=== PATIENT | male | born 1980 | race Caucasian/White ===

== ENCOUNTER → 2020-01-31 | Outpatient (CLI) | payer BC ==
[~2020-01-31] MED LIST: ALEVE220 M1 PO; CLONAZEPAM 1 MG1 M1 PO; DULOXETINE HCL30 MG PO; MOTION SICKNESS50 M1 PO; NEURONTIN 300M300 M2 PO; OMEGA 3 1,0001 EACH PO; PERCOCET 10-321 EACH PO; PROTONIX40 M2 PO
== END ==
LOC: RAD 12:24
DX: M51.36 Other intervertebral disc degeneration, lumbar region (principal); G89.29 Other chronic pain

== ENCOUNTER → 2020-02-05 | Outpatient (CLI) | payer BC | LOC: LAB 07:44 | DX: Z01.812 Encounter for preprocedural laboratory examination (principal); Z20.828 Contact with and (suspected) exposure to other viral communicable diseases ==

== ENCOUNTER 2020-02-14 10:01 | Inpatient (IN) | payer BC ==
[2020-02-05 11:12] LABS: URINE BILIRUBIN NEGATIVE (Negative); URINE BLOOD NEGATIVE (Negative); URINE CLARITY CLEAR; URINE COLOR YELLOW; URINE GLUCOSE-RANDOM* NEGATIVE (Negative); URINE KETONES NEGATIVE (Negative); URINE LEUKOCYTES-REFLEX NEGATIVE (Negative); URINE NITRITE-REFLEX NEGATIVE (Negative); URINE PROTEIN (DIPSTICK) NEGATIVE (Negative); URINE SPECIFIC GRAVITY <= 1.005 (1.005-1.035); URINE UROBILINOGEN 0.2 E.U./dl (0.2-1.0)
[2020-02-05 11:13] LABS: ABSOLUTE NEUTROPHILS 7.1 thou/uL (1.4-8.2); BASOPHILS 0.5 % (0.0-2.0); EOSINOPHILS 3.5 % (0.0-3.0); HEMATOCRIT 45.2 % (42.0-52.0); HEMOGLOBIN 15.7 gm/dL (14.0-18.0); LYMPHOCYTES 23.8 % (24.0-44.0); MCH 31.1 pg (26.0-34.0); MCHC 34.7 g/dL (28.0-37.0); MCV 89.7 fL (80.0-100.0); MONOCYTES 5.2 % (1.0-8.0); PLATELET COUNT 275 thou/uL (150-400); RBC 5.05 mil/uL (4.50-6.00); RDW 13.4 % (10.5-14.5); WBC 10.6 thou/uL (4.0-11.0)
[2020-02-05 11:26] LABS: PROTIME 10.2 Seconds (9.3-11.4)
[2020-02-05 11:32] LABS: ALBUMIN 4.5 g/dL (3.4-5.0); CALCIUM 9.4 mg/dL (8.5-10.1); CREATININE 1.1 mg/dL (0.7-1.3); POTASSIUM 4.5 mmol/L (3.5-5.1); TOTAL BILIRUBIN 0.3 mg/dL (0.2-1.0); TOTAL PROTEIN 7.7 g/dL (6.4-8.2)
[2020-02-14] VITALS (7 sets, daily range): BP systolic 123–138; BP diastolic 74–82
[~2020-02-14] VITALS: Ht 195.6 cm; Wt 79.4 kg
[~2020-02-14 10:01] MED LIST changes: +DRAMAMINE PO
--- NOTE | 2020-02-14 17:17 | NUR ---
PT ARRIVED ON UNIT AT 1605, PT IS AOX4, VSS. PT RATES BACK PAIN 5/10, SUPERVISOR HEAT TREATING APPROVED 2 ORAL PAIN ANALGESICS BEFORE INSURANCE POLICY CLERK PUMP WAS CONNECTED. DRESSING ON BACK IS CDI, HAS URINAL AT BS. IV IN RIGHT AC IS PATENT WITH FLUIDS FLOWING. NURSE EDUCATED PT ABOUT CALL LIGHT AND INSURANCE POLICY CLERK PUMP. SCDS, HOMER HOSE ARE IN PLACE. WILL CONTINUE TO MONITOR.
--- NOTE | 2020-02-15 03:38 | NUR ---
ASSUMED PT CARE AT 1900.MELTER SUPERVISOR OPEN HEARTH FURNACE PUMP PROVIDING RELIEVE.URINAL AT BEDSIDE WITH ADEQUATE URINAL OUTPUT.DRSG TO HER BACK DRY AND INTACT.PT WAS ABLE TO TOLERATE CLEAR LIQUIDS AT HS.PT ABLE TO MAKE HIS NEEDS KNOWN.
[2020-02-15 04:45] VITALS: BP 132/78
[2020-02-15 05:43] LABS: ABSOLUTE NEUTROPHILS 8.2 thou/uL (1.4-8.2); BASOPHILS 0.3 % (0.0-2.0); HEMATOCRIT 41.4 % (42.0-52.0); LYMPHOCYTES 10.7 % (24.0-44.0); MCH 30.6 pg (26.0-34.0); MCHC 33.8 g/dL (28.0-37.0); MCV 90.5 fL (80.0-100.0); MONOCYTES 6.3 % (1.0-8.0); PLATELET COUNT 226 thou/uL (150-400); POLYS 80.7 % (36.0-66.0); RBC 4.58 mil/uL (4.50-6.00); RDW 13.2 % (10.5-14.5); WBC 10.1 thou/uL (4.0-11.0)
[2020-02-15 06:24] LABS: CALCIUM 9.4 mg/dL (8.5-10.1); CREATININE 1.1 mg/dL (0.7-1.3); MAGNESIUM 1.7 mg/dL (1.8-2.4); POTASSIUM 4.2 mmol/L (3.5-5.1)
[2020-02-15 08:13] VITALS: BP 109/67
[2020-02-15] MEDS ORDERED: ROBAXIN 750 MG750 MG PO (09:43)
--- NOTE | 2020-02-15 10:19 | NUR ---
assumed care at 0700. pt is a&o x 4. pt complains of pain and was given oxycodone. IV right A.C shows no signs of discomfort or pain. fall precaution. call light within reach. Aquasel dressing was changed on back during shift. diet is regular. VSS. Pt is readjusting on bed every [address] hours[address] SCD hose are in place.
[2020-02-15 15:33] VITALS: BP 109/67
[2020-02-15 15:37] VITALS: BP 136/81
--- NOTE | 2020-02-16 10:54 | O ---
[facility] [place] [address] OPERATIVE REPORT Name: RUTH BARROSO Room #: 436-P [facility] IN M.R.#: [id number] Admission: 02/14/20 Attend Phys: Peterson King Discharge: 02/15/20 Date of : 80 Report #: [id number] THIS REPORT FOR: cc: [facility] - Clinic physician unknown [facility] - Clinic physician unknown Shawn Alvarenga MD ~ CC: [facility]J unknown Peterson King DATE OF SERVICE: 02/14/2020 PREPROCEDURAL DIAGNOSES: Right L4-L5 herniated nucleus pulposus, right L5-S1 herniated nucleus pulposus with radiculopathy, L5 and S1 nerve root. POSTPROCEDURAL DIAGNOSES: Right L4-L5 herniated nucleus pulposus, right L5-S1 herniated nucleus pulposus with radiculopathy, L5 and S1 nerve root. PROCEDURES PERFORMED: Right L4-L5 herniated nucleus pulposus excision, right L5-S1 herniated nucleus pulposus excision and fluoroscopy. SURGEON: Dr. Alvarenga. BIOINFORMATICS ENGINEER SURGEON: JOSTIN Willis ANESTHESIA: General via endotracheal tube. INDICATIONS: The patient has had intractable right leg pain, both in L5 and S1 distribution. He has herniations by MRI at both levels, L4-L5 and L5-S1. The patient has proved refractory to multiple modality conservative management, and he is requesting we proceed with operative intervention. He understands the risks of surgery to be , DVT, pulmonary embolism, paraplegia, loss of bowel and bladder function, loss of sexual function, possibility of bleeding, bleeding requiring transfusion, transfusion attendant risks of AIDS and hepatitis infection, instability, need for revision, prolonged hospital stay, dural leak, and spinal headache, and recurrence. DESCRIPTION OF PROCEDURE: He was brought to the operating room, administered general anesthesia via endotracheal tube. Lower extremities were treated with HOMER hose and intermittent compression stockings. He had received Ancef and was positioned with all bony prominences and padded appropriately. Care was taken to ensure the shoulders not abducted more than 90 degrees, the elbows flexed more than 90 degrees and there was no undue pressure on the cubital or carpal canals. The area of the anterior superior iliac spine was well padded to protect the lateral femoral cutaneous nerve. Hips and knees were well padded and there was no pressure on the dorsum of the feet. The low back was defatted with alcohol, visualized under fluoroscopy and the pedicles of L4, L5 and S1 [facility] [address] [place] [address] OPERATIVE REPORT Name: RUTH BARROSO Room #: 436-P [facility] IN M.R.#: [id number] Admission: 02/14/20 Attend Phys: Peterson King Discharge: 02/15/20 Date of : 80 Report #: [id number] were marked on the patient's back for surgical reference. We then sterilely prepped and infiltrated the skin with 0.5% Marcaine, 1:200,000 epinephrine and sharp dissection was continued down through the skin, the subcutaneous tissues. Subperiosteal dissection was performed of the inferior aspect of L4, L5, all of L5 and S1. We then used a high-speed drill to thin the lamina of L4 on the right until we were to the anterior cortex. We then the ligamentum flavum from the undersurface of the lamina and then resected the bone of the lamina until we were cephalad to the ligament. We then put a [place] dental elevator beneath the ligamentum flavum and incised it with a #15 blade. We removed the ligamentum flavum with a 3 mm Kerrison until we were lateral to the spinal sac. We then carefully protected the nerve root was mobilized it medially, protected it with a nerve root retractor and performed a diskectomy, running the disk with straight up and down biting pituitaries until there was no further retrieval of disk material on the right at L4-L5. We then moved to the L5-S1, cleaned the interspace with heavy bowl curette. We had placed pledgets of thrombin-soaked Gelfoam over the open dura at L4-L5 on the right. After we cleaned the interspace at L5-S1 on the right, we thinned the lamina of L5, resected the bone until we were cephalad to the ligament, resected the ligament at L5-S1 and then when we dissected and could see that we were clearly lateral to the nerve root and could palpate the pedicle, mobilized all the structures medial byers across the disk and ran into a free fragment. Free fragment was extruded above the root, down the root, and it was all removed with a pituitary. At times, we used a nerve hook to free it from scar and with the nerve root protected under direct visualization, the disk was removed from the canal. We then entered the hole that had allowed the extrusion and removed disk until we had a stable remainder. We then copiously irrigated with a liter of antibiotic-containing solution, placed pledgets of thrombin-soaked Gelfoam over the laminotomy sites, closed the deep fascial layer after obtaining meticulous hemostasis with 0 Ethibond in [id number] interrupted fashion, deep subcu with 0 Vicryl, superficial subcu with 2-0 Vicryl, and the skin with subcuticular 3-0, dressed with benzoin, Steri-Strips, Xeroform, sterile dressing, sponges and a bioclusive. The patient tolerated the procedure well. There were no technical misadventures. He is being transported to the recovery room for closer neurovascular observation, discharge to floor when stable to continue prophylactic antibiotics and serial neurovascular exams. I anticipate discharge in the morning. Final blood loss was 25 mL. <ELECTRONICALLY SIGNED> By: Shawn Alvarenga MD 02/16/20 [id number] Shawn Alvarenga MD /nt
== END 2020-02-15 16:50 | disposition home or self-care (01) | DRG 520 ==
LOC: OR 10:01 → 4S 10:01 → TBA 10:05 → OR 11:22 → 4S 15:50 → OR 15:51 → 4S 15:51
PROVIDERS: Nurse Practitioner; ADMIT Hospitalist; ATTEND Hospitalist
PROC: 01NB0ZZ Release Lumbar Nerve, Open Approach (ICD-10-PCS; principal; 2020-02-14)
PROC: 0SB40ZZ Excision of Lumbosacral Disc, Open Approach (ICD-10-PCS; principal; 2020-02-14)
PROC: 00NY0ZZ Release Lumbar Spinal Cord, Open Approach (ICD-10-PCS; principal; 2020-02-14)
DX: M51.17 Intervertebral disc disorders with radiculopathy, lumbosacral region (principal); F41.9 Anxiety disorder, unspecified; F32.9 Major depressive disorder, single episode, unspecified; K21.9 Gastro-esophageal reflux disease without esophagitis; G89.29 Other chronic pain; M54.9 Dorsalgia, unspecified; F17.210 Nicotine dependence, cigarettes, uncomplicated; Z90.49 Acquired absence of other specified parts of digestive tract; Z87.442 Personal history of urinary calculi; Z79.899 Other long term (current) drug therapy
CPT/HCPCS: 10102; 50010; 50101; 50402; 50850; 51878; 56524; 56526; 56529; 62110; 62900; 70005